=== PATIENT | female | born 1975 | race African-American/Black ===

== ENCOUNTER → 2017-10-29 | Outpatient (CLI) | payer BC | END | disposition home or self-care (01) | LOC: KCIC MAMMO 09:36 | DX: Z12.31 Encounter for screening mammogram for malignant neoplasm of breast (principal) | CPT/HCPCS: 77067 ==

== ENCOUNTER → 2017-11-10 | Outpatient (CLI) | payer BC | END | disposition home or self-care (01) | LOC: KCIC MAMMO 09:55 | DX: R92.8 Other abnormal and inconclusive findings on diagnostic imaging of breast (principal) | CPT/HCPCS: 76641; 77065 ==

== ENCOUNTER → 2018-05-13 | Outpatient (CLI) | payer BC ==
--- NOTE | 2018-05-13 10:14 | KCIC ---
Right breast diagnostic digital mammograms: Reason for examination: Follow-up nodular densities. Comparison is made to previous studies dated 10/29/2017 and 11/10/2017. Interpretation was made with the benefit of CAD. The skin and nipple show no abnormalities. No abnormal axillary lymph nodes are seen. The breast parenchyma shows scattered fibroglandular density. (Breast density: Category B.) There continues to be some nodularity in the upper outer quadrant which is unchanged. There are no new dominant masses, suspicious calcifications or architectural distortions. A few benign calcifications are present. Impression: Continued nodularity in the upper outer quadrant. Ultrasound to follow. BI-RADS category 0: Incomplete. Needs additional imaging evaluation. Right breast ultrasound: Comparison is made to previous study dated 11/10/2017. Ultrasound was performed of the right breast with attention to the upper outer quadrant and axilla. At the 11:00 position 8 cm from the nipple, there continues to be 1.1 cm hypoechoic fibrocystic lesion in parallel orientation which is unchanged. There are also appears to be a small 4.8 mm cystic lesion at the 10:00 position 10 cm from the nipple which probably represents cystic fat necrosis. No other cystic or solid lesions are seen. No abnormal appearing lymph nodes are seen in the right axilla. IMPRESSION: No change in the 1.1 cm fibrocystic type lesion at the 11:00 position. Small 4.8 mm cystic lesion consistent with cystic fat necrosis at the 10:00 position. Recommend continued 6 month sonographic follow-up at the time of bilateral mammograms. BI-RADS Category 3: Probably Benign. "Our facility is accredited by the [employer] Mammography Program." This patient's information has been entered into a reminder system for the patient to be notified with the results of her examination and a target date for the next mammogram. Electronically signed by: Natacha Huffman MD (05/13/2018 10:10 AM) [id number]
== END | disposition home or self-care (01) ==
LOC: KCIC MAMMO 09:10
PROVIDERS: ATTEND Obstetrics & Gynecology
DX: N64.89 Other specified disorders of breast (principal)
CPT/HCPCS: 76641; 77065